=== PATIENT | female | born 1940 | race Caucasian/White ===

== ENCOUNTER 2016-08-12 23:20 | Emergency (ER) | payer MEDICARE, OTHER | END 2016-08-13 03:23 | disposition home or self-care (01) | DX: S80.01XA Contusion of right knee, initial encounter (principal); X58.XXXA Exposure to other specified factors, initial encounter; M25.561 Pain in right knee; Z86.718 Personal history of other venous thrombosis and embolism; Z79.01 Long term (current) use of anticoagulants ==

== ENCOUNTER 2017-12-08 09:38 | Emergency (ER) | payer MEDICARE, OTHER ==
[2017-12-08] MEDS ORDERED: DEXAMETHASONE 10 MG/ML VIAL PO STA (11:14)
--- NOTE | 2017-12-08 11:16 | ED Physician Documentation ---
History of Present Illness - Stated complaint Stated Complaint: BODY PX - Chief complaint Chief Complaint: General - History obtained from History obtained from: Patient - History of Present Illness Timing: How many weeks ago (3) - Treatment prior to arrival Treatment prior to arrival: Tramadol. - Additonal information Additional information: The patient is a 77-year-old female with history of fibromyalgia, who presents with generalized myalgias, involving especially her neck and shoulders, as well as arms and legs. Her symptoms started about 3 weeks ago, and this morning she decided she just "couldn't take it anymore." It hurts to turn her head. She describes a generalized headache. She denies fever, sore throat, cough or shortness of breath, nausea, vomiting, or dysuria. She denies any recent traumatic injury. She has been under "unbelievable stress" and has identified stress as an aggravating factor in her fibromyalgia. She was seen by her nurse practitioner 5 days ago and was prescribed tramadol, which she states has not helped. Review of Systems Constitutional: reports: Myalgias. denies: Fever Eyes: denies: Decreased vision Ears: denies: Tinnitus/ringing Nose: denies: Congestion Throat: denies: Sore throat Cardiac: denies: Chest pain / pressure Respiratory: denies: Dyspnea, Cough GI: denies: Abdominal Pain, Nausea, Vomiting : denies: Dysuria Skin: denies: Rash Musculoskeletal: reports: Neck pain, Extremity pain. denies: Extremity swelling Neurologic: reports: Headache. 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 : None HEENT: None Psych: None Musculoskeletal: Fibromyalgia Derm: None - Past Surgical History Past Surgical History: No - Present Medications Home Medications: Ambulatory Orders Medication Instructions Recorded Confirmed Atenolol 1 mg PO DAILY 12/29/15 12/29/15 Azo` 95 mg PO DAILY 12/29/15 12/29/15 Vit D` 2,000 mg PO DAILY 12/29/15 12/29/15 Warfarin [Coumadin] 1 mg PO DAILY 12/29/15 12/29/15 Warfarin [Coumadin] 7.5 mg PO DAILY 12/29/15 12/29/15 Methocarbamol [Robaxin-750] 750 mg PO TID PRN #20 tablet 12/08/17 - Allergies Allergies/Adverse Reactions: Allergies Allergy/AdvReac Type Severity Reaction Status Date / Time codeine AdvReac Anaphylaxis Verified 12/29/15 05:08 Sulfa (Sulfonamide AdvReac Rash Verified 12/29/15 05:07 Antibiotics) - Social History Does the pt smoke?: No Smoking Status: Never smoker Does the pt drink ETOH?: No Does the pt have substance abuse?: No - Immunizations Immunizations are current?: Yes - POLST Patient has POLST: No PD ED PE NORMAL - Vitals Vital signs reviewed: Yes (Mild hypertension.) - General General: Alert and oriented X 3, Well developed/nourished, Other (Overweight) - HEENT HEENT: Atraumatic, EOMI, Pharynx benign - Neck Neck: Supple, no meningeal sign, No bony TTP, No adenopathy, No JVD, Other ( Paracervical muscular tenderness bilaterally. No bony tenderness to palpation.) - Cardiac Cardiac: RRR - Respiratory Respiratory: No respiratory distress, Clear bilaterally - Abdomen Abdomen: Soft, Non tender - Back Back: No CVA TTP - Derm Derm: No rash - Extremities Extremities: No edema, No calf tenderness / cord - Neuro Neuro: Alert and oriented X 3, No motor deficit, No sensory deficit Results - Vitals Vitals: Oxygen O2 Source Room air PD MEDICAL DECISION MAKING - ED course Complexity details: re-evaluated patient, considered differential, d/w patient, d/w family ED course: The patient's presentation is most consistent with exacerbation of fibromyalgia. There is significant muscle tension involving paracervical musculature. Her examination does not suggest meningitis or other infectious etiology. There is no evidence to suggest acute traumatic etiology. Treatment in the emergency department included administration of dexamethasone 10 mg orally. She is being discharged with prescription for Robaxin. I discussed with her treating with short course of prednisone, but she declined. I advised that narcotic medication would not be clinically advisable. I discussed with her and her symptomatic treatment, outpatient follow-up, as well as potentially worrisome signs or symptoms that should prompt reevaluation in the emergency department. - Sepsis Event Vital Signs: Oxygen O2 Source Room air Departure - Departure Disposition: 01 Home, Self Care Clinical Impression: Myalgia Condition: Stable Instructions: ED Muscle Aching Follow-Up: Joanne Garsia MD [Primary Care Provider] - Prescriptions: Methocarbamol [Robaxin-750] 750 mg PO TID PRN #20 tablet PRN Reason: Spasms Comments: Take Robaxin 3 times daily as prescribed to help decrease muscle spasms. Continue using Tylenol for its anti-inflammatory effect. Follow up with your primary physician within 1-2 weeks. Call to schedule appointment. Return to the emergency department if you develop increasing pain, or otherwise worsening symptoms. Discharge Date/Time: 12/08/17 11:29
[2017-12-08 11:31] VITALS: BP 149/86
[2017-12-08] MEDS ORDERED: CHERRY SYRUP 10 ML UDC PO ONE (11:31)
== END 2017-12-08 11:29 | disposition home or self-care (01) ==
LOC: ED 09:38
DX: I10 Essential (primary) hypertension (principal); I48.91 Unspecified atrial fibrillation; M79.7 Fibromyalgia; Z79.01 Long term (current) use of anticoagulants
CPT/HCPCS: 99283; A9270

== ENCOUNTER 2018-04-04 17:54 | Outpatient (CLI) | payer MEDICARE, OTHER | END 2018-04-04 17:55 | disposition critical access hospital (66) | LOC: EMS 17:54 | PROVIDERS: ATTEND Surgery | DX: S09.93XA Unspecified injury of face, initial encounter (principal); M25.551 Pain in right hip; M25.561 Pain in right knee; W01.0XXA Fall on same level from slipping, tripping and stumbling without subsequent striking against object, initial encounter; Y93.01 Activity, walking, marching and hiking; Y92.213 High school as the place of occurrence of the external cause | CPT/HCPCS: A0425; A0429 ==

== ENCOUNTER 2018-04-04 18:26 | Emergency (ER) | payer MEDICARE, OTHER ==
--- NOTE | 2018-04-04 18:45 | ED Physician Documentation ---
PD HPI HEAD INJURY - Stated complaint Stated Complaint: FALL - HIP PAIN - Chief complaint Chief Complaint: Trauma Hd/Nk - History obtained from History obtained from: Patient - History of Present Illness Mechanism of head injury: Fell Where head injury occurred: Other (Parking lot) Timing - onset: How many minutes ago (30) Pain level now: 0 Location of injury: Right Quality of pain: Pain Associated symptoms: Other (Right facial swelling and bruised). No: LOC, AMS, Amnesia, Nausea / vomiting, Neck pain, Seizures, Ear drainage, Nasal drainage Symptoms improve with: Nothing Symptoms worsen with: Other (Nothing) Contributing factors: Anticoagulated (Coumadin) Similar symptoms before: Has not had sx before Recently seen: Not recently seen - Additional information Additional information: 77-year-old female with history of atrial fib and blood clot on Coumadin here with complaint of accidentally falling in a parking lot because it was dark and she did not see the bump on the ground. Patient stated she landed face forward. She denied any loss of consciousness, Headache, neck pain or back pain. She stated she landed on her right knee so she is complaining of pain in her right knee and right hip. Patient was unable to Get up andwalk so EMS was called.Patient denied any symptoms prior to the fall. Review of Systems Ten Systems: 10 systems reviewed and negative Constitutional: denies: Fever Eyes: denies: Loss of vision, Decreased vision Nose: denies: Rhinorrhea / runny nose Throat: denies: Dental pain / toothache Cardiac: denies: Chest pain / pressure Respiratory: denies: Dyspnea GI: denies: Abdominal Pain, Nausea, Vomiting Musculoskeletal: reports: Extremity pain. denies: Neck pain, Back pain Neurologic: reports: Head injury. 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 : None HEENT: None Psych: None Musculoskeletal: Fibromyalgia Derm: None - Past Surgical History Past Surgical History: No - Present Medications Home Medications: Ambulatory Orders Medication Instructions Recorded Confirmed Azo` 95 mg PO DAILY 12/29/15 12/29/15 RX: Atenolol 1 mg PO DAILY 12/29/15 12/29/15 Vit D` 2,000 mg PO DAILY 12/29/15 12/29/15 Warfarin [Coumadin] 1 mg PO DAILY 12/29/15 12/29/15 Warfarin [Coumadin] 7.5 mg PO DAILY 12/29/15 12/29/15 Methocarbamol [Robaxin-750] 750 mg PO TID PRN #20 tablet 12/08/17 - Allergies Allergies/Adverse Reactions: Allergies Allergy/AdvReac Type Severity Reaction Status Date / Time codeine AdvReac Anaphylaxis Verified 12/29/15 05:08 Sulfa (Sulfonamide AdvReac Rash Verified 12/29/15 05:07 Antibiotics) - Social History Does the pt smoke?: No Smoking Status: Never smoker Does the pt drink ETOH?: No Does the pt have substance abuse?: No - Immunizations Immunizations are current?: Yes - POLST Patient has POLST: No PD ED PE NORMAL - Vitals Vital signs reviewed: Yes - General General: Alert and oriented X 3, No acute distress, Well developed/nourished - HEENT HEENT: PERRL, EOMI, Moist mucous membranes, Pharynx benign, Dentition benign, Other (Right cheek with mild swelling and purplish hematoma. Patient able to open mouth without difficulty.) - Neck Neck: Supple, no meningeal sign, No bony TTP - Cardiac Cardiac: No murmur, Other (Irregularly irregular) - Respiratory Respiratory: No respiratory distress, Clear bilaterally - Abdomen Abdomen: Normal bowel sounds, Soft, Non tender, Non distended - Back Back: No CVA TTP, No spinal TTP - Derm Derm: Normal color, Warm and dry - Extremities Extremities: No deformity, No edema, Other (Right knee with mild swelling and tender to palpation.Mild tenderness to palpation of the right hip but no leg shortening no abduction.) - Neuro Neuro: Alert and oriented X 3, clinical dietetic technician 2-12 intact, No motor deficit, No sensory deficit, Normal speech - Psych Psych: Normal mood, Normal affect Results - Vitals Vitals: Vital Signs - 24 hr 04/04/18 04/04/18 04/04/18 18:26 19:47 20:30 Temperature 37.1 C Heart Rate 76 73 70 Respiratory 18 16 Rate Blood Pressure 161/95 H 138/91 H 142/79 H O2 Saturation 96 96 96 04/04/18 21:41 Temperature Heart Rate 68 Respiratory Rate Blood Pressure 141/79 H O2 Saturation 96 Oxygen O2 Source Room air - Labs Labs: Laboratory Tests 04/04/18 04/04/18 04/04/18 18:35 18:35 18:35 WBC 6.7 RBC 4.43 Hgb 14.9 Hct 44.5 MCV 100.4 H MCH 33.7 H MCHC 33.5 RDW 16.2 H Plt Count 213 MPV 8.2 Neut # (Auto) 4.8 Lymph # (Auto) 1.1 L Evans # (Auto) 0.6 Eos # (Auto) 0.1 Baso # (Auto) 0.1 Absolute Nucleated RBC 0.01 Nucleated RBC % 0.1 PT 21.1 H INR 1.9 H Sodium 139 Potassium 4.5 Chloride 103 Carbon Dioxide 29 Anion Gap 7.0 BUN 31 H Creatinine 0.9 Estimated GFR (MDRD) 61 L Glucose 113 H Calcium 9.7 Total Bilirubin 0.7 AST 25 ALT 20 Alkaline Phosphatase 55 Total Protein 7.7 Albumin 4.2 Globulin 3.5 Albumin/Globulin Ratio 1.2 Lipase 35 PD MEDICAL DECISION MAKING - ED course Complexity details: re-evaluated patient (2049 Patient inform of test results. Patient does not want any pain medication for her right knee discomfort. She wants an ointment for abrasion on her right cheek. States her tetanus shot is up-to-date.), considered differential (Intracranial bleed or subdural hemorrhage, facial bone fracture versus contusions., Right knee fracture versus contusion, right hip contusion versus fracture or dislocation.), d/w patient, d/w family (2129 Spouse at the bedside updated on test results. Patient sitting at the bedside and calling for her right home.) Departure - Departure Disposition: 01 Home, Self Care Clinical Impression: Hematoma Contusion Qualifiers: Encounter type: initial encounter Contusion area: head Facial hematoma Qualifiers: Encounter type: initial encounter Qualified Code(s): S00.83XA - Contusion of other part of head, initial encounter Contusion of knee, right Qualifiers: Encounter type: initial encounter Qualified Code(s): S80.01XA - Contusion of right knee, initial encounter Condition: Stable Instructions: ED Hematoma, ED Wound Care Comments: After your fall expect to be sore tomorrow so you may take your Tylenol for pain. Apply ice pack on your right cheek to decrease the swelling. You may apply [id number] on this area until it is healed. Also apply ice pack on your right knee and elevate the right leg. If worse return to the emergency room. Otherwise follow-up with your primary doctor this week. Discharge Date/Time: 04/04/18 22:00
[2018-04-04 18:47] LABS: BASOPHILS # (AUTO) 0.1 10^3/uL (0.0-0.1); BASOPHILS % (AUTO) 1.1 %; EOSINOPHILS # (AUTO) 0.1 10^3/uL (0.0-0.7); EOSINOPHILS % (AUTO) 1.1 %; HGB - HEMOGLOBIN 14.9 g/dL (12.0-16.0); LYMPHOCYTES # (AUTO) 1.1 10^3/uL (1.5-3.5); LYMPHOCYTES % (AUTO) 16.1 %; MEAN CORPUSCULAR HEMOGLOBIN 33.7 pg (27.0-31.0); MEAN CORPUSCULAR HGB CONC 33.5 g/dL (32.0-36.0); MEAN CORPUSCULAR VOLUME 100.4 fL (81.0-99.0); MEAN PLATELET VOLUME 8.2 fL (7.9-10.8); MONOCYTES # (AUTO) 0.6 10^3/uL (0.0-1.0); MONOCYTES % (AUTO) 9.3 %; NEUTROPHILS # (AUTO) 4.8 10^3/uL (1.5-6.6); NEUTROPHILS % (AUTO) 72.4 %; PLT - PLATELET COUNT 213 10^3/uL (130-450); RED BLOOD COUNT 4.43 10^6/uL (4.20-5.40); RED CELL DISTRIBUTION WIDTH 16.2 % (12.0-15.0); WHITE BLOOD COUNT 6.7 x10^3/uL (4.8-10.8)
[2018-04-04 18:53] LABS: INR 1.9 (0.8-1.2); PT - PROTHROMBIN TIME 21.1 secs (9.9-12.6)
[2018-04-04 19:07] LABS: ALBUMIN 4.2 g/dL (3.2-5.5); ALBUMIN/GLOBULIN RATIO 1.2 (1.0-2.2); BILIRUBIN,TOTAL 0.7 mg/dL (0.2-1.0); CALCIUM 9.7 mg/dL (8.5-10.3); CREATININE 0.9 mg/dL (0.4-1.0); TOTAL PROTEIN 7.7 g/dL (6.7-8.2)
--- NOTE | 2018-04-04 19:34 | CT Report ---
Reason: fall on coumadin Procedure Date: 04/04/2018 Accession Number: [id number] / [id number] Procedure: CT - Head W/O CPT Code: FULL RESULT: EXAM: CT HEAD EXAM DATE: 04/04/2018 07:07 PM. CLINICAL HISTORY: Fall. COMPARISON: None. TECHNIQUE: Multiaxial CT images were obtained from the foramen magnum to the vertex. Reformats: Sagittal and coronal. IV contrast: None. In accordance with CT protocol optimization, one or more of the following dose reduction techniques were utilized for this exam: automated exposure control, adjustment of mA and/or KV based on patient size, or use of iterative reconstructive technique. FINDINGS: Parenchyma: No intraparenchymal hemorrhage. No evidence of mass, midline shift, or CT findings of infarction. Faith-white differentiation is distinct. Extraaxial Spaces: Normal for age. No subdural or epidural collections identified. Ventricles: Normal in size and position. Sinuses and Orbits: Imaged paranasal sinuses, orbits, and mastoids show no significant abnormality. Bones: No evidence of fracture or calvarial defect. Other: None. IMPRESSION: No acute intracranial CT abnormality. RAD[facility]
--- NOTE | 2018-04-04 19:55 | XRAY Report ---
Reason: fall pain Procedure Date: 04/04/2018 Accession Number: [id number] / [id number] Procedure: XR - Knee 3 View RT CPT Code: FULL RESULT: EXAM: RIGHT KNEE RADIOGRAPHY EXAM DATE: 04/04/2018 07:23 PM. CLINICAL HISTORY: Right knee pain after ground-level fall today COMPARISON: None. TECHNIQUE: 3 views. FINDINGS: Bones: Normal. No fractures or bone lesions. Joints: Mild meniscal chondrocalcinosis. Mild patellofemoral compartment osteoarthritis. Small knee effusion. Mild vascular calcifications. Soft Tissues: Unremarkable IMPRESSION: 1. No fracture. 2. Mild right patellofemoral compartment osteoarthritis. 3. Small right knee effusion. 4. Mild meniscal chondrocalcinosis, nonspecific, but which may be seen in settings such as senescent change or calcium pyrophosphate deposition disease. RAD[facility]
--- NOTE | 2018-04-04 19:57 | CT Report ---
Reason: fall, hematoma of right side of face Procedure Date: 04/04/2018 Accession Number: [id number] / [id number] Procedure: CT - Facial Bones W/O CPT Code: FULL RESULT: EXAM: CT MAXILLOFACIAL WITHOUT CONTRAST EXAM DATE: 04/04/2018 07:07 PM. CLINICAL HISTORY: Fall, hematoma of right side of face. COMPARISONS: None. TECHNIQUE: Thin-section axial images were acquired of the face without contrast. Post-processing: Coronal and sagittal reformats. Other: None. In accordance with CT protocol optimization, one or more of the following dose reduction techniques were utilized for this exam: automated exposure control, adjustment of mA and/or KV based on patient size, or use of iterative reconstructive technique. FINDINGS: Soft Tissue: Right infraorbital and periorbital fat stranding without focal collection. Orbits: No intraorbital hematoma. Status post right lens surgery. Bones: There is some lobulation of the mandible anteriorly. This is a bit more prominent on the right although this is probably physiologic for this patient. Doubt an acute fracture at this level. Temporomandibular Joints: The temporomandibular joints are symmetric and normally located. Sinuses: Mild mucosal thickening ethmoid and maxillary sinuses. Other: Atherosclerosis. 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 IMPRESSION: 1. Right infraorbital and periorbital subcutaneous hematoma without evidence of facial fracture. RADIA
--- NOTE | 2018-04-04 20:02 | XRAY Report ---
Reason: fall pain Procedure Date: 04/04/2018 Accession Number: [id number] / [id number] Procedure: XR - Hip w/Pelvis 2-3V RT CPT Code: FULL RESULT: EXAM: RIGHT HIP AND PELVIS RADIOGRAPHY EXAM DATE: 04/04/2018 07:23 PM. HISTORY: Right hip pain after ground-level fall COMPARISONS: None. TECHNIQUE: 1 view of the pelvis and 1 view of the hip. FINDINGS: Bones: No fracture. Bone island in the left inferior pubic ramus. 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 Soft Tissues: Unremarkable IMPRESSION: No fracture. [facility]IA
[2018-04-04] MEDS ORDERED: BACITRACIN OINT TOP STA (21:41)
[2018-04-04 21:42] VITALS: BP 141/79
== END 2018-04-04 22:00 | disposition home or self-care (01) ==
LOC: EDUNIT# → ED 18:26
DX: S00.83XA Contusion of other part of head, initial encounter (principal); S70.01XA Contusion of right hip, initial encounter; S80.01XA Contusion of right knee, initial encounter; S00.81XA Abrasion of other part of head, initial encounter; W18.09XA Striking against other object with subsequent fall, initial encounter; Y92.481 Parking lot as the place of occurrence of the external cause; M79.7 Fibromyalgia; I10 Essential (primary) hypertension; I48.91 Unspecified atrial fibrillation; Z79.01 Long term (current) use of anticoagulants; M16.0 Bilateral primary osteoarthritis of hip; M47.898 Other spondylosis, sacral and sacrococcygeal region
CPT/HCPCS: 36415; 70450; 70486; 73502; 73562; 80053; 83690; 85025; 85610; 99283; 99284; A9270

== ENCOUNTER 2018-09-19 22:08 | Outpatient (CLI) | payer MEDICARE, OTHER | END 2018-09-19 22:09 | disposition short-term general hospital (02) | LOC: EMS 22:08 | PROVIDERS: ATTEND Surgery | DX: R07.9 Chest pain, unspecified (principal) | CPT/HCPCS: A0425; A0427 ==

== ENCOUNTER 2018-12-23 04:51 | Outpatient (CLI) | payer MEDICARE, OTHER | END 2018-12-23 04:52 | disposition short-term general hospital (02) | LOC: EMS 04:51 | PROVIDERS: ATTEND Surgery | DX: R07.9 Chest pain, unspecified (principal) | CPT/HCPCS: A0425; A0427 ==

== ENCOUNTER 2019-05-06 11:45 | Emergency (ER) | payer MEDICARE, OTHER ==
[2019-05-06 11:57] VITALS: BP 145/98
[2019-05-06 12:29] LABS: BASOPHILS % (AUTO) 0.6 %; EOSINOPHILS # (AUTO) 0.2 10^3/uL (0.0-0.7); EOSINOPHILS % (AUTO) 3.1 %; HGB - HEMOGLOBIN 13.6 g/dL (12.0-16.0); LYMPHOCYTES # (AUTO) 1.1 10^3/uL (1.5-3.5); LYMPHOCYTES % (AUTO) 23.9 %; MEAN CORPUSCULAR HEMOGLOBIN 29.7 pg (27.0-31.0); MEAN CORPUSCULAR HGB CONC 31.1 g/dL (32.0-36.0); MEAN CORPUSCULAR VOLUME 95.6 fL (81.0-99.0); MEAN PLATELET VOLUME 9.9 fL (7.9-10.8); MONOCYTES # (AUTO) 0.5 10^3/uL (0.0-1.0); MONOCYTES % (AUTO) 10.7 %; NEUTROPHILS # (AUTO) 2.9 10^3/uL (1.5-6.6); NEUTROPHILS % (AUTO) 61.5 %; PLT - PLATELET COUNT 224 10^3/uL (130-450); RED BLOOD COUNT 4.58 10^6/uL (4.20-5.40); RED CELL DISTRIBUTION WIDTH 14.4 % (12.0-15.0); WHITE BLOOD COUNT 4.8 x10^3/uL (4.8-10.8)
[2019-05-06 12:55] LABS: ALBUMIN 4.3 g/dL (3.2-5.5); ALBUMIN/GLOBULIN RATIO 1.1 (1.0-2.2); CALCIUM 10.1 mg/dL (8.5-10.3); TOTAL PROTEIN 8.3 g/dL (6.7-8.2)
--- NOTE | 2019-05-06 13:00 | XRAY Report ---
Reason: chest pain, dizzy Procedure Date: 05/06/2019 Accession Number: [id number] / [id number] Procedure: XR - Chest 1 View X-Ray CPT Code: 09406 Final Report FULL RESULT: EXAM: CHEST RADIOGRAPHY EXAM DATE: 05/06/2019 12:05 PM. CLINICAL HISTORY: Chest pain, dizzy. COMPARISON: CHEST 1 VIEW 12/29/2015 5:57 AM XR CHEST PA AND LAT 12/02/2007 3:02 AM. TECHNIQUE: 1 view. FINDINGS: Lungs/Pleura: Scarring left midlung. No consolidation. No vascular congestion. No pneumothorax. Mediastinum: Cardiomegaly. Aortic atherosclerosis. Mild aortic tortuosity. Other: Degenerative changes of both shoulders. IMPRESSION: 1. Cardiomegaly. 2. No acute disease. [facility]IA
== END 2019-05-06 13:30 | disposition left against medical advice (07) ==
LOC: ED 11:45
DX: Z53.21 Procedure and treatment not carried out due to patient leaving prior to being seen by health care provider (principal)
CPT/HCPCS: 36415; 71045; 80053; 83690; 84484; 85025; 93005

== ENCOUNTER 2021-07-22 08:00 | Outpatient (CLI) | payer MEDICARE, OTHER ==
--- NOTE | 2021-07-22 15:13 | XRAY Report ---
PROCEDURE: Ankle 3 View LT INDICATIONS: LEFT ANKLE PAIN TECHNIQUE: 3 views of the ankle were acquired. COMPARISON: None FINDINGS: Bones: No fractures or dislocations. Ankle mortise is normally aligned. No suspicious bony lesions . Soft tissues: Medial ankle soft tissue swelling is seen. No tibiotalar joint effusion. Achilles ten don appears normal. IMPRESSION: Medial ankle soft tissue swelling. No acute ankle fracture or dislocation. Ankle mortise is congruent. Reviewed by: Reynaldo Cordova MD on 07/22/2021 3:11 PM [facility] Approved by: Reynaldo Cordova MD on 07/22/2021 3:11 PM [facility] Station ID: [id number]
== END 2021-07-22 23:59 | disposition home or self-care (01) ==
LOC: DI.S 08:00
PROVIDERS: ATTEND Physician Assistant Medical
DX: M25.572 Pain in left ankle and joints of left foot (principal); R93.6 Abnormal findings on diagnostic imaging of limbs; R93.89 Abnormal findings on diagnostic imaging of other specified body structures; Z79.01 Long term (current) use of anticoagulants
CPT/HCPCS: 36416; 85610

== ENCOUNTER 2021-10-31 11:25 | Outpatient (CLI) | payer MEDICARE, OTHER | END 2021-10-31 11:26 | disposition home or self-care (01) | LOC: LAB.S 11:25 | PROVIDERS: ATTEND Internal Medicine Gastroenterology | DX: I82.5Z9 Chronic embolism and thrombosis of unspecified deep veins of unspecified distal lower extremity (principal); Z79.01 Long term (current) use of anticoagulants | CPT/HCPCS: 36416; 85610 ==

== ENCOUNTER 2022-01-24 14:35 | Outpatient (CLI) | payer MEDICARE, OTHER | END 2022-01-24 14:36 | disposition home or self-care (01) | LOC: LAB.S 14:35 | PROVIDERS: ATTEND Pharmacist | DX: Z79.01 Long term (current) use of anticoagulants (principal); I82.5Z9 Chronic embolism and thrombosis of unspecified deep veins of unspecified distal lower extremity | CPT/HCPCS: 36416; 85610 ==

== ENCOUNTER 2022-04-20 03:30 | Emergency (ER) | payer MEDICARE, OTHER ==
[2022-04-20] MEDS ORDERED: ONDANSETRON 4 MG/2 ML VIAL IVP STA (03:51)
[2022-04-20] MEDS ORDERED: SODIUM CHLORIDE 0.9% 1,000 ML IV STA (03:51)
[2022-04-20] MEDS ORDERED: MORPHINE 2 MG/ML CARPUJECT IVP STA ×2 (04:00→08:02)
[2022-04-20 04:07] LABS: BASOPHILS % (AUTO) 0.4 %; EOSINOPHILS # (AUTO) 0.1 10^3/uL (0.0-0.7); EOSINOPHILS % (AUTO) 0.7 %; HCT - HEMATOCRIT 44.3 % (37.0-47.0); HGB - HEMOGLOBIN 14.2 g/dL (12.0-16.0); LYMPHOCYTES # (AUTO) 1.1 10^3/uL (1.5-3.5); LYMPHOCYTES % (AUTO) 12.9 %; MEAN CORPUSCULAR HEMOGLOBIN 30.3 pg (27.0-31.0); MEAN CORPUSCULAR HGB CONC 32.1 g/dL (32.0-36.0); MEAN CORPUSCULAR VOLUME 94.5 fL (81.0-99.0); MEAN PLATELET VOLUME 9.8 fL (7.9-10.8); MONOCYTES # (AUTO) 0.6 10^3/uL (0.0-1.0); MONOCYTES % (AUTO) 7.7 %; NEUTROPHILS # (AUTO) 6.4 10^3/uL (1.5-6.6); NEUTROPHILS % (AUTO) 78.2 %; PLT - PLATELET COUNT 200 10^3/uL (130-450); RED BLOOD COUNT 4.69 10^6/uL (4.20-5.40); RED CELL DISTRIBUTION WIDTH 14.6 % (12.0-15.0); WHITE BLOOD COUNT 8.2 x10^3/uL (4.8-10.8)
[2022-04-20 04:20] LABS: ALBUMIN 4.1 g/dL (3.2-5.5); BILIRUBIN,TOTAL 1.1 mg/dL (0.2-1.0); CALCIUM 10.3 mg/dL (8.5-10.3); CREATININE 0.9 mg/dL (0.4-1.0); POTASSIUM 4.6 mmol/L (3.5-5.0); TOTAL PROTEIN 8.3 g/dL (6.7-8.2)
[2022-04-20] MEDS ORDERED: iohexoL-300 100 ML VIAL ONE (04:37)
[2022-04-20 04:40] LABS: INR 1.5 (0.8-1.2); PT - PROTHROMBIN TIME 16.1 secs (9.9-12.6)
[2022-04-20] MEDS ORDERED: iohexoL-300 100 ML VIAL IVP ONE (05:12)
--- NOTE | 2022-04-20 05:36 | ED Physician Documentation ---
PD HPI ABD PAIN - Stated complaint Stated Complaint: ABD PX - Chief complaint Chief Complaint: Abd Pain - History obtained from History obtained from: Patient - Additional information Additional information: Patient is a 81-year-old female with a history of atrial fibrillation on Coumadin presenting for evaluation of lower abdominal pain that started around 8 PM. She is unable to describe it other than pain. She reports nausea but no vomiting. Denies diarrhea. Her last bowel movement was 2 days ago. She reports struggling with constipation over the past 6 months And so she does not have a bowel movement every day.She denies eating anything that would have upset her stomach. She denies a history of abdominal surgeries or previous bowel obstructions.Pain does not go anywhere else. She denies dysuria. No chest pain, fever, difficulty breathing. Review of Systems Constitutional: denies: Fever Nose: denies: Congestion Cardiac: denies: Chest pain / pressure Respiratory: denies: Dyspnea GI: reports: Abdominal Pain, Nausea. denies: Vomiting, Diarrhea : denies: Dysuria Musculoskeletal: denies: Back pain Neurologic: denies: Headache PD PAST MEDICAL HISTORY - Past Medical History Past Medical History: Yes Cardiovascular: Hypertension, High cholesterol, Atrial fibrillation Respiratory: None Endocrine/Autoimmune: None GI: None ROVER TENDER: None : None HEENT: None Psych: None Musculoskeletal: Fibromyalgia Derm: None - Past Surgical History Past Surgical History: Yes General: Colonoscopy Cardiovascular: Coronary stent - Present Medications Home Medications: Ambulatory Orders Medication Instructions Recorded Confirmed Amox/Clav 875/125 [Augmentin] 1 each PO Q12H #20 tablet 04/20/22 Atenolol [Tenormin] 100 mg PO DAILY PM 04/20/22 04/20/22 Atorvastatin Calcium 40 mg PO DAILY 04/20/22 04/20/22 Isosorbide Mononitrate [Isosorbide 30 mg PO DAILY 04/20/22 04/20/22 Mononitrate ER] Morphine Ir [Ms Ir] 1 tab PO Q6H PRN #10 tablet 04/20/22 Potassium Chloride 1 cap PO DAILY 04/20/22 04/20/22 Warfarin [Coumadin] 5 mg PO DAILY 04/20/22 04/20/22 - Allergies Allergies/Adverse Reactions: Allergies Allergy/AdvReac Type Severity Reaction Status Date / Time codeine AdvReac Anaphylaxis Verified 04/20/22 03:49 Sulfa (Sulfonamide AdvReac Rash Verified 04/20/22 03:49 Antibiotics) - Social History Does the pt smoke?: No Smoking Status: Never smoker Does the pt drink ETOH?: No Does the pt have substance abuse?: No - Immunizations Immunizations are current?: Yes - POLST Patient has POLST: No PD ED PE NORMAL - General General: Alert and oriented X 3, No acute distress, Well developed/nourished - HEENT HEENT: Atraumatic - Neck Neck: Supple, no meningeal sign - Cardiac Cardiac: Other (Normal rate, irregularly irregular) - Respiratory Respiratory: No respiratory distress, Clear bilaterally - Abdomen Abdomen: Normal bowel sounds, Soft, Non distended, Other (Mild suprapubic tenderness to palpation, no rebound, no guarding, no pulsatile mass or hernias) - Back Back: No CVA TTP - Derm Derm: Warm and dry - Extremities Extremities: No edema - Neuro Neuro: Normal speech Results - Vitals Vitals: Vital Signs - 24 hr 04/20/22 04/20/22 04/20/22 03:30 04:06 04:28 Temperature 36.8 C Heart Rate 72 82 81 Respiratory 16 16 16 Rate Blood Pressure 139/88 H 157/74 H 157/74 H O2 Saturation 99 98 97 04/20/22 04/20/22 04/20/22 05:53 06:48 09:15 Temperature Heart Rate 59 L 65 66 Respiratory 16 16 16 Rate Blood Pressure 138/65 H 141/71 H 120/55 L O2 Saturation 97 100 94 Oxygen O2 Source Room air - Labs Labs: Laboratory Tests 04/20/22 04/20/22 04/20/22 04:00 04:00 04:24 WBC 8.2 RBC 4.69 Hgb 14.2 Hct 44.3 MCV 94.5 MCH 30.3 MCHC 32.1 RDW 14.6 Plt Count 200 MPV 9.8 Neut # (Auto) 6.4 Lymph # (Auto) 1.1 L [place] # (Auto) 0.6 Eos # (Auto) 0.1 Baso # (Auto) 0.0 Absolute Nucleated RBC 0.00 Nucleated RBC % 0.0 PT 16.1 H INR 1.5 H Sodium 138 Potassium 4.6 Chloride 102 Carbon Dioxide 25 Anion Gap 11.0 BUN 29 H Creatinine 0.9 Estimated GFR (MDRD) 60 L Glucose 125 H Calcium 10.3 Total Bilirubin 1.1 H AST 28 ALT 16 Alkaline Phosphatase 72 Total Protein 8.3 H Albumin 4.1 Globulin 4.2 Albumin/Globulin Ratio 1.0 Lipase 33 Urine Color Urine Clarity Urine pH Ur Specific [place] Urine Protein Urine Glucose (UA) Urine Ketones Urine Occult Blood Urine Nitrite Urine Bilirubin Urine Urobilinogen Ur Leukocyte Esterase Urine RBC Urine WBC Ur Squamous Epith Cells Urine Bacteria Ur Microscopic Review Urine Culture Comments 04/20/22 06:20 WBC RBC Hgb Hct MCV MCH MCHC RDW Plt Count MPV Neut # (Auto) Lymph # (Auto) [place] # (Auto) Eos # (Auto) Baso # (Auto) Absolute Nucleated RBC Nucleated RBC % PT INR Sodium Potassium Chloride Carbon Dioxide Anion Gap BUN Creatinine Estimated GFR (MDRD) Glucose Calcium Total Bilirubin AST ALT Alkaline Phosphatase Total Protein Albumin Globulin Albumin/Globulin Ratio Lipase Urine Color YELLOW Urine Clarity HAZY Urine pH 6.0 Ur Specific [place] 1.020 Urine Protein NEGATIVE Urine Glucose (UA) NEGATIVE Urine Ketones NEGATIVE Urine Occult Blood NEGATIVE Urine Nitrite POSITIVE H Urine Bilirubin NEGATIVE Urine Urobilinogen 0.2 (NORMAL) Ur Leukocyte Esterase NEGATIVE Urine RBC 0-5 Urine WBC 0-3 Ur Squamous Epith Cells RARE Squamous Urine Bacteria Many H Ur Microscopic Review INDICATED Urine Culture Comments INDICATED PD MEDICAL DECISION MAKING - ED course Complexity details: reviewed results, re-evaluated patient ED course: Pt presenting with lower abdominal pain. VSS. Mild tenderness to lower abdomen. Labs reviewed. UA concerning for infection. CT pending at shift change and care turned over to Dr. Prieto. Pt denies upper abdominal pain has no RUQ pain, no CP, no SOB. She has been ambulating without difficulty in the ER. Departure - Departure Disposition: 01 Home, Self Care Clinical Impression: Colitis, Adnexal mass Condition: Good Instructions: ED Gastroenteritis Bacterial Prescriptions: Amox/Clav 875/125 [Augmentin] 1 each PO Q12H #20 tablet Morphine Ir [Ms Ir] 1 tab PO Q6H PRN #10 tablet PRN Reason: Pain Comments: You were seen today for acute abdominal pain, your labs were fairly unremarkable including a normal CBC, subtherapeutic INR at 1.5, chemistry panels were basically normal with the exception of mildly elevated BUN at 29 which is not necessarily new for you, and you did have a urinalysis positive for nitrite and bacteria. Here he received 4 mg of morphine with help and 1 g of ceftriaxone and antibiotic. A CT scan was done showing segmental colonic wall thickening consistent with a colitis, incidental gallstones, and a 2.4 cm cystic structure likely associated with the right ovary. That last finding does require follow-up with your primary care physician and consideration for pelvic ultrasound and/or referral to gynecology For the colitis I am prescribing an antibiotic and your prescriptions were sent electronically to [facility] in [place]. You should also follow-up with your primary care physician for this for consideration for referral to Gastroenterology And consideration for colonoscopy Often times when you start antibiotics while you are taking anticoagulants such as Coumadin or warfarin, your INR will go up. You need to have your INR checked frequently while on the antibiotics. Have it checked in 3 days, again in 6 days, and at least weekly while you are on antibiotics. Dose adjustments of your anticoagulants may be necessary. I am prescribing a short course of narcotic pain medication for you. These are potentially dangerous and addictive medications that should be used carefully. These medications may constipate you. Take an jopq-vzf-ddwpysf stool softener (docusate) twice daily with plenty of water while taking these medications. If you go 24 hours without a bowel movement, take megs-ffy-abdpjhz miralax, per package instructions. Do not drink or drive while taking these medications. If you received narcotic or sedating medications while in the emergency department, do not drive for 24 hours. Store this medication in a safe, secure place and out of reach of children. It is a violation of federal law to give or sell this medication to another person or to use in a manner other than prescribed. The ED will not refill narcotic prescriptions, including prescriptions lost or stolen. To dispose of unwanted medications: 1. [facility] at [address] in [place] has a medication drop box. They accept prescription medications (in pill form) Thursday through Thursday 9:00 a.m. to 5:00 p.m. 2. The [facility] [employer] accepts prescription medications (in pill form only) for disposal year round. Call for more information. 3. Contact the [facility] for the next [employer] sponsored prescription drug collection event. , x7310, or x7310; Note that many narcotic pain relievers also contain Tylenol/acetaminophen. Please ensure that your total dose of acetaminophen from all sources does not exceed 3 g (3000 mg) per day. We will culture your urine, the results should be done in 48-72 hours. If an antibiotic change is necessary we will call you. Return if worse in the meantime, especially if you develop increasing flank pain, fevers, or cannot keep down the medication. Discharge Date/Time: 04/20/22 10:26
[2022-04-20 06:44] LABS: BILIRUBIN,URINE NEGATIVE (NEGATIVE); GLUCOSE, URINE (UA) NEGATIVE (NEGATIVE); KETONES,URINE (UA) NEGATIVE (NEGATIVE); LEUKOCYTE ESTERASE, URINE NEGATIVE (NEGATIVE); NITRITE,URINE POSITIVE (NEGATIVE); OCCULT BLOOD,URINE NEGATIVE (NEGATIVE); PROTEIN,URINE NEGATIVE (NEGATIVE); UROBILINOGEN,URINE 0.2 (NORMAL) E.U./dL (NORMAL)
[2022-04-20 06:48] LABS: CLARITY,URINE HAZY (CLEAR)
[2022-04-20 06:51] LABS: BACTERIA,URINE Many /HPF (None Seen); RBC,URINE 0-5 /HPF (0-5); SQUAMOUS EPITHELIAL CELL,UR RARE Squamous (<= Few); WBC,URINE 0-3 /HPF (0-5)
[2022-04-20] MEDS ORDERED: cefTRIAXone 1 GM in SODIUM CHLORIDE 0.9% MINIBAG 100 ML IV STA (06:52)
[2022-04-20] MEDS ORDERED: cefTRIAXone 1 GM VIAL ONE (06:57)
--- NOTE | 2022-04-20 08:08 | ED Physician Documentation ---
ED Addendum - Addendum Addendum: 04/20/22 08:07 Patient seen and examined at bedside after signout from Dr. Pinzon and completion of CT imaging. She was much better for a time after morphine but pain is now recurred but she appears well and comfortable at the bedside. Results discussed with patient including the primary diagnosis of likely colitis which we will treat with antibiotics, but also the cholelithiasis and the adnexal mass needing follow-up and she and voiced understanding of this. Disposition: Discharged home Condition: Stable Diagnosis: 1. Colitis 2. Right adnexal mass Prescriptions: 1. Morphine sulfate immediately released tablets, 1 tablet every 6 hours p.o. as needed pain #10 no refills 2. Augmentin 875/125 1 tab p.o. twice daily #20
--- NOTE | 2022-04-20 09:05 | CT Report ---
PROCEDURE: ABDOMEN/PELVIS W INDICATIONS: lower abd pain CONTRAST: 100 ML OMNI 300 TECHNIQUE: After the administration of IV contrast, 5 mm thick sections acquired from the diaphragms to the symp hysis. 5 mm thick coronal and sagittal reformats were acquired. For radiation dose reduction, the f ollowing was used: automated exposure control, adjustment of mA and/or kV according to patient size. COMPARISON: None. FINDINGS: Image quality: Excellent. ABDOMEN: Lung bases: Lung bases are clear. Heart size is moderately enlarged. Moderate coronary artery calc ification is seen. Solid organs: Liver is mildly enlarged. Potential subcentimeter liver cysts are present, yet not well seen. The spleen demonstrates normal size and demonstrates no suspicious lesions. Gallbladder demon strates layering gallstones Biliary system is non dilated. Pancreas enhances normally. No adrenal nodules. Kidneys demonstrate normal size and enhancement, without hydronephrosis. Peritoneum and bowel: Moderate nodular bowel wall thickening can be seen, particularly involving the transverse colon. The descending colon and the sigmoid colon are also involved. No free fluid or air. No dilated loops of small bowel are seen. Nodes and vessels: No retroperitoneal or mesenteric adenopathy by size criteria. Aorta and inferior vena cava are normal in size. Miscellaneous: No ventral hernias. PELVIS: Genitourinary: Bladder wall thickness is normal. The uterus demonstrates an unremarkable appearance for age. There is a 2.4 cm right adnexal cyst, as on series 3 image 54. Miscellaneous: No inguinal hernias or adenopathy. Bones: No suspicious bony lesions. No vertebral body compression fractures. Focal L5-S1 degenerati ve change is seen. Age-appropriate degenerative changes are seen elsewhere. Scattered apparent bone islands can be seen. IMPRESSION: Generalized colonic wall thickening can be seen, particularly involving the transverse c olon. Please correlate with potential infectious and inflammatory causes of colitis. No findings of p erforation or abscess can be seen. Right adnexal cyst seen. Please consider a follow-up pelvic ultrasound for further evaluation. Additional findings: Moderate cardiomegaly Moderate coronary artery calcification Mildly enlarged liver Layering gallstones Focal L5-S1 degenerative change Scattered apparent bone islands Note: No significant discrepancy from the preliminary report. Reviewed by: Clarence Moore MD on 04/20/2022 8:04 AM [facility] Approved by: Clarence Moore MD on 04/20/2022 8:04 AM [facility] Station ID: [id number]
[2022-04-20 09:15] VITALS: BP 120/55
== END 2022-04-20 10:26 | disposition home or self-care (01) ==
LOC: EDUNIT# → ED 03:30
DX: K52.9 Noninfective gastroenteritis and colitis, unspecified (principal); R19.09 Other intra-abdominal and pelvic swelling, mass and lump; R79.1 Abnormal coagulation profile; Z79.01 Long term (current) use of anticoagulants
CPT/HCPCS: 36415; 74177; 80053; 81001; 83690; 85025; 85610; 87086; 87181; 96365; 96375; 96376; 99283; 99284; Q9967; 81003

== ENCOUNTER → 2022-04-20 | Outpatient (CLI) | payer MEDICARE, OTHER | END | disposition critical access hospital (66) | LOC: EMS 02:46 | DX: R10.9 Unspecified abdominal pain (principal); R51.9 Headache, unspecified; R11.0 Nausea | CPT/HCPCS: A0425; A0429 ==

== ENCOUNTER 2022-04-28 11:26 | Outpatient (CLI) | payer MEDICARE, OTHER | END 2022-04-28 11:27 | disposition home or self-care (01) | LOC: LAB.S 11:26 | PROVIDERS: ATTEND Pharmacist | DX: Z79.01 Long term (current) use of anticoagulants (principal); I82.5Z9 Chronic embolism and thrombosis of unspecified deep veins of unspecified distal lower extremity | CPT/HCPCS: 36416; 85610 ==

== ENCOUNTER 2022-09-23 12:19 | Outpatient (CLI) | payer MEDICARE, OTHER ==
[2022-09-23 15:04] LABS: BILIRUBIN,URINE NEGATIVE (NEGATIVE); GLUCOSE, URINE (UA) NEGATIVE (NEGATIVE); KETONES,URINE (UA) NEGATIVE (NEGATIVE); LEUKOCYTE ESTERASE, URINE SMALL (NEGATIVE); NITRITE,URINE POSITIVE (NEGATIVE); OCCULT BLOOD,URINE TRACE-INTA (NEGATIVE); PH,URINE 5.5 PH (5.0-7.5); PROTEIN,URINE NEGATIVE (NEGATIVE); UROBILINOGEN,URINE 0.2 (NORMAL) E.U./dL (NORMAL)
[2022-09-23 15:33] LABS: CLARITY,URINE CLOUDY (CLEAR)
[2022-09-23 15:34] LABS: BACTERIA,URINE Many /HPF (None Seen); SQUAMOUS EPITHELIAL CELL,UR RARE Squamous (<= Few)
== END 2022-09-23 12:20 | disposition home or self-care (01) ==
LOC: LAB.S 12:19
PROVIDERS: ATTEND Student in an Organized Health Care Education/Training Program
DX: R39.9 Unspecified symptoms and signs involving the genitourinary system (principal)
CPT/HCPCS: 81001; 87077; 87086; 87181

== ENCOUNTER 2023-03-03 14:01 | Outpatient (CLI) | payer MEDICARE, OTHER | END 2023-03-03 14:02 | disposition home or self-care (01) | LOC: LAB.S 14:01 | PROVIDERS: ATTEND Pharmacist | DX: Z79.01 Long term (current) use of anticoagulants (principal); I82.5Z9 Chronic embolism and thrombosis of unspecified deep veins of unspecified distal lower extremity | CPT/HCPCS: 36416; 85610 ==

== ENCOUNTER 2023-05-06 14:04 | Outpatient (CLI) | payer MEDICARE, OTHER | END 2023-05-06 14:05 | disposition home or self-care (01) | LOC: LAB.S 14:04 | PROVIDERS: ATTEND Pharmacist | DX: I82.5Z9 Chronic embolism and thrombosis of unspecified deep veins of unspecified distal lower extremity (principal); Z79.01 Long term (current) use of anticoagulants | CPT/HCPCS: 36416; 85610 ==

== ENCOUNTER 2023-05-15 10:12 | Emergency (ER) | payer MEDICARE, OTHER ==
[2023-05-15 10:35] VITALS: O2SAT 99
--- NOTE | 2023-05-15 10:45 | ED Physician Documentation ---
PD HPI SKIN - Stated complaint Stated Complaint: LT FT SWELLING/PX - Chief complaint Chief Complaint: General - History obtained from History obtained from: Patient - History of Present Illness Timing - onset: Today Timing - duration: Hours Timing - details: Abrupt onset, Still present Location: LLE (pain dorsum of foot, very tender with some warmth. No skin lesions nor bruising. Has pain to calf area as well though. Was walking while shopping a lot yesterday and was doing some lifting and standing. Did not have pain at the time though. No history of gout nor rheumatoid.) Quality / character: Painful, Swelling. No: Discolored, Draining Associated symptoms: No: Fever, Myalgias Contributing factors: No: Exposed to medication, Exposed to food, Recent illness Similar symptoms before: Has not had sx before Recently seen: Not recently seen Review of Systems Constitutional: denies: Fever, Chills Skin: denies: Abrasion (s), Laceration (s) Neurologic: denies: Focal weakness, Numbness PD PAST MEDICAL HISTORY - Past Medical History Cardiovascular: Hypertension, High cholesterol, Atrial fibrillation Respiratory: None Endocrine/Autoimmune: None GI: None CLINICAL REHABILITATION LIAISON: None : None HEENT: None Psych: None Musculoskeletal: Fibromyalgia Derm: None - Past Surgical History Past Surgical History: Yes General: Colonoscopy Cardiovascular: Coronary stent - Present Medications Home Medications: Ambulatory Orders Medication Instructions Recorded Confirmed Atenolol [Tenormin] 100 mg PO DAILY PM 04/20/22 04/20/22 Atorvastatin Calcium 40 mg PO DAILY 04/20/22 04/20/22 Isosorbide Mononitrate [Isosorbide 30 mg PO DAILY 04/20/22 04/20/22 Mononitrate ER] Morphine Ir [Ms Ir] 1 tab PO Q6H PRN #10 tablet 04/20/22 Potassium Chloride 1 cap PO DAILY 04/20/22 04/20/22 Warfarin [Coumadin] 5 mg PO DAILY 04/20/22 04/20/22 Colchicine 0.6 mg PO BID #10 tablet 05/15/23 HYDROcod/ACETAM 5/325 [[place] 5/325] 1 ea PO Q6H PRN #10 tablet 05/15/23 dexAMETHasone [Decadron] 4 mg PO DAILY #5 tablet 05/15/23 - Allergies Allergies/Adverse Reactions: Allergies Allergy/AdvReac Type Severity Reaction Status Date / Time codeine AdvReac Anaphylaxis Verified 05/15/23 10:31 Sulfa (Sulfonamide AdvReac Rash Verified 05/15/23 10:31 Antibiotics) - Social History Does the pt smoke?: No Smoking Status: Never smoker Does the pt drink ETOH?: No Does the pt have substance abuse?: No - Immunizations Immunizations are current?: Yes - POLST Patient has POLST: No PD ED PE NORMAL - Vitals Vital signs reviewed: Yes - General General: Alert and oriented X 3, No acute distress, Well developed/nourished - Derm Derm: Normal color, Warm and dry - Extremities Extremities: Other (left foot with marked tenderness anterolateral with some warmth, i=minimal redness. No skin sores. Some tender in lower calf area without swelling. No vesicles nor rash noted. ) - Neuro Neuro: Alert and oriented X 3, No motor deficit, No sensory deficit, Normal speech Results - Vitals Vitals: Vital Signs - 24 hr 05/15/23 05/15/23 10:26 13:09 Temperature 37.0 C 36.8 C Heart Rate 65 62 Respiratory 16 16 Rate Blood Pressure 142/74 H 138/72 H O2 Saturation 99 99 Oxygen O2 Source Room air - Labs Labs: Laboratory Tests 05/15/23 11:28 INR (Fingerstick) 2.5 H - Rads (name of study) duplex US left leg Relevant Findings:: Prelim report reviewed (from [facility], no DVT seen) PD Medical Decision Making - ED course Complexity details: reviewed results (US no DVT. ), considered differential (pain dorsum foot in particular. Some of calf. Does not fit dermatomal distribution per se. I think calf is muscular as no DVT seen. The foot can be arthritic from excess walking yest. Also consider gout as a prime location for that. Less likely early shingles. Has good pulse and cap refill, not vasc), d/w patient Departure - Departure Disposition: 01 Home, Self Care Clinical Impression: Acute foot pain, Arthritis of foot, Strain of left calf muscle, Anticoagulant long-term use Condition: Stable Record reviewed to determine appropriate education?: Yes Instructions: ED Sprain Foot Follow-Up: DAVID BAUER MD [Primary Care Provider] - Prescriptions: Colchicine 0.6 mg PO BID #10 tablet dexAMETHasone [Decadron] 4 mg PO DAILY #5 tablet HYDROcod/ACETAM 5/325 [[place] 5/325] 1 ea PO Q6H PRN #10 tablet PRN Reason: Pain Comments: The ultrasound of your leg does not show any blood clots. Your Coumadin level is therapeutic at 2.5 today. The degree of tenderness and pain on the foot is suggestive of arthritis flareup or tendinitis. It also is suggestive of potential gout arthritis. At this point we can treated with anti-inflammatories of Decadron steroid and colchicine anti-inflammatory. Since you are on a blood thinner, do not use NSAIDs such as ibuprofen or naproxen. For pain add Tylenol 500 to 650 mg 4 times daily regularly. You can add hydrocodone/acetaminophen if needed for worse pain. This would be intended short-term on all the medicines for just 3 to 5 days until fully improved. I sent your prescriptions to [facility] in [place]. Activity as tolerated but try to minimize any degree of walking etc. I know you do have to care for your . Recheck if not improving well over the next several days and resolved by 3 to 5 days. Return if worse or follow-up with your primary care. I am prescribing a short course of narcotic pain medication for you. These are potentially dangerous and addictive medications that should be used carefully. These medications may constipate you. Take an oyme-mew-gumvojt stool softener such as docusate twice daily with plenty of water while taking these medications . If you go 24 hours without a bowel movement, take svyk-nlz-bruzfvv MiraLAX, per package instructions. Do not drink or drive while taking these medications. If you received narcotic or sedating medications while in the emergency department do not drive for 24 hours. Store this medication in a safe, secure place and out of reach of children. It is a violation of federal law to give or sell this medication to another person or to use in a manner other than prescribed. The ED will not refill narcotic prescriptions, including prescriptions lost or stolen. You can dispose of unwanted medications at the [facility]'s office or at several pharmacies such as [facility]. Forms: PCP List Discharge Date/Time: 05/15/23 13:00
[2023-05-15] MEDS ORDERED: ACETAMINOPHEN 325 MG TABLET PO STA (11:23)
[2023-05-15] MEDS ORDERED: dexAMETHasone 4 MG TABLET PO STA (11:23)
[2023-05-15] MEDS ORDERED: HYDROcod/ACETAM 5/325 MG TABLET PO STA (11:23)
--- NOTE | 2023-05-15 12:45 | Ultrasound Report ---
PROCEDURE: Duplex Ext Veins Left INDICATIONS: left foot and calf pain for 2 days, increasing TECHNIQUE: Real-time imaging, as well as color and pulse Doppler interrogation, were performed of the lower extr emity deep veins from the inguinal ligament to the popliteal fossa. Attempted visualization of the ca lf veins was performed. COMPARISON: None. FINDINGS: The deep veins are normally compressible, and free of intraluminal thrombus. Color and pu lse Doppler demonstrate normal phasic intraluminal flow. There is normal augmentation response to di stal compression maneuver. Of note, the calf veins were not evaluated. IMPRESSION: No deep venous thrombosis of the visualized left lower extremity. Of note, the popliteal vein and cindi f veins were not evaluated. Recommend repeat ultrasound of these areas if there is swelling. Reviewed by: Diego Avilez MD on 05/15/2023 12:44 PM PST Approved by: Diego Avilez MD on 05/15/2023 12:44 PM PST Station ID: [id number]
[2023-05-15 13:10] VITALS: BP 138/72
== END 2023-05-15 13:00 | disposition home or self-care (01) ==
LOC: ED 10:12
DX: M19.072 Primary osteoarthritis, left ankle and foot (principal); S86.912A Strain of unspecified muscle(s) and tendon(s) at lower leg level, left leg, initial encounter; X50.9XXA Other and unspecified overexertion or strenuous movements or postures, initial encounter; Y93.89 Activity, other specified
CPT/HCPCS: 85610; 93971; 99283; 99284; A9270; J8540

== ENCOUNTER 2023-07-10 11:22 | Outpatient (CLI) | payer MEDICARE, OTHER | END 2023-07-10 11:23 | disposition home or self-care (01) | LOC: LAB.S 11:22 | PROVIDERS: ATTEND Pharmacist | DX: I82.5Z9 Chronic embolism and thrombosis of unspecified deep veins of unspecified distal lower extremity (principal); Z79.01 Long term (current) use of anticoagulants | CPT/HCPCS: 36416; 85610 ==

== ENCOUNTER 2023-07-14 13:17 | Outpatient (CLI) | payer MEDICARE, OTHER | END 2023-07-14 13:18 | disposition home or self-care (01) | LOC: LAB.S 13:17 | PROVIDERS: ATTEND Registered Nurse | DX: N12 Tubulo-interstitial nephritis, not specified as acute or chronic (principal) | CPT/HCPCS: 87086; 87181 ==

== ENCOUNTER 2023-07-21 12:30 | Outpatient (CLI) | payer MEDICARE, OTHER | END 2023-07-21 12:31 | disposition home or self-care (01) | LOC: LAB.S 12:30 | PROVIDERS: ATTEND Physician Assistant Medical | DX: N30.90 Cystitis, unspecified without hematuria (principal); Z86.19 Personal history of other infectious and parasitic diseases | CPT/HCPCS: 87086 ==

== ENCOUNTER 2023-07-28 07:00 | Outpatient (CLI) | payer MEDICARE, OTHER ==
[2023-07-28 15:48] LABS: BILIRUBIN,URINE NEGATIVE (NEGATIVE); GLUCOSE, URINE (UA) NEGATIVE (NEGATIVE); KETONES,URINE (UA) NEGATIVE (NEGATIVE); LEUKOCYTE ESTERASE, URINE NEGATIVE (NEGATIVE); NITRITE,URINE NEGATIVE (NEGATIVE); OCCULT BLOOD,URINE NEGATIVE (NEGATIVE); PH,URINE 5.5 PH (5.0-7.5); PROTEIN,URINE NEGATIVE (NEGATIVE); UROBILINOGEN,URINE 0.2 (NORMAL) E.U./dL (NORMAL)
[2023-07-28 16:16] LABS: CLARITY,URINE CLEAR (CLEAR)
[2023-07-28 16:17] LABS: BACTERIA,URINE None Seen /HPF (None Seen); RBC,URINE 0-5 /HPF (0-5); SQUAMOUS EPITHELIAL CELL,UR NONE SEEN (<= Few); WBC,URINE 0-3 /HPF (0-5)
== END 2023-07-28 23:59 | disposition home or self-care (01) ==
LOC: LAB.S 07:00
PROVIDERS: ATTEND Emergency Medicine
DX: N30.90 Cystitis, unspecified without hematuria (principal)
CPT/HCPCS: 81001; 87086

== ENCOUNTER 2023-08-13 12:35 | Outpatient (CLI) | payer MEDICARE, OTHER | END 2023-08-13 12:36 | disposition home or self-care (01) | LOC: LAB.S 12:35 | PROVIDERS: ATTEND Pharmacist | DX: I82.5Z9 Chronic embolism and thrombosis of unspecified deep veins of unspecified distal lower extremity (principal); Z79.01 Long term (current) use of anticoagulants | CPT/HCPCS: 36416; 85610 ==

== ENCOUNTER 2023-08-21 08:42 | Outpatient (CLI) | payer MEDICARE, OTHER ==
[2023-08-21 14:36] LABS: BILIRUBIN,URINE NEGATIVE (NEGATIVE); GLUCOSE, URINE (UA) NEGATIVE (NEGATIVE); KETONES,URINE (UA) NEGATIVE (NEGATIVE); LEUKOCYTE ESTERASE, URINE MODERATE (NEGATIVE); NITRITE,URINE NEGATIVE (NEGATIVE); OCCULT BLOOD,URINE TRACE-INTA (NEGATIVE); PH,URINE 5.5 PH (5.0-7.5); PROTEIN,URINE NEGATIVE (NEGATIVE); UROBILINOGEN,URINE 0.2 (NORMAL) E.U./dL (NORMAL)
[2023-08-21 14:43] LABS: CLARITY,URINE HAZY (CLEAR)
[2023-08-21 15:13] LABS: BACTERIA,URINE Moderate /HPF (None Seen); RBC,URINE 0-5 /HPF (0-5); SQUAMOUS EPITHELIAL CELL,UR RARE Squamous (<= Few); WBC,URINE >25 /HPF (0-5)
== END 2023-08-21 08:43 | disposition home or self-care (01) ==
LOC: LAB.S 08:42
PROVIDERS: ATTEND Student in an Organized Health Care Education/Training Program
DX: R30.0 Dysuria (principal)
CPT/HCPCS: 81001; 87086; 87181

== ENCOUNTER 2023-10-01 11:39 | Outpatient (CLI) | payer MEDICARE, OTHER | END 2023-10-01 11:40 | disposition home or self-care (01) | LOC: LAB.S 11:39 | PROVIDERS: ATTEND Pharmacist | DX: I82.5Z9 Chronic embolism and thrombosis of unspecified deep veins of unspecified distal lower extremity (principal); Z79.01 Long term (current) use of anticoagulants | CPT/HCPCS: 36416; 85610 ==

== ENCOUNTER 2023-11-05 09:45 | Outpatient (CLI) | payer MEDICARE, OTHER | END 2023-11-05 09:46 | disposition home or self-care (01) | LOC: LAB.S 09:45 | PROVIDERS: ATTEND Pharmacist | DX: I82.5Z9 Chronic embolism and thrombosis of unspecified deep veins of unspecified distal lower extremity (principal); Z79.01 Long term (current) use of anticoagulants | CPT/HCPCS: 36416; 85610 ==

== ENCOUNTER 2023-11-25 09:38 | Outpatient (CLI) | payer MEDICARE, OTHER | END 2023-11-25 09:39 | disposition home or self-care (01) | LOC: LAB.S 09:38 | PROVIDERS: ATTEND Pharmacist | DX: I82.5Z9 Chronic embolism and thrombosis of unspecified deep veins of unspecified distal lower extremity (principal); Z79.01 Long term (current) use of anticoagulants | CPT/HCPCS: 36416; 85610 ==

== ENCOUNTER 2023-12-18 07:49 | Outpatient (CLI) | payer MEDICARE, OTHER | END 2023-12-18 07:50 | disposition home or self-care (01) | LOC: LAB.S 07:49 | PROVIDERS: ATTEND Pharmacist | DX: I82.5Z9 Chronic embolism and thrombosis of unspecified deep veins of unspecified distal lower extremity (principal); Z79.01 Long term (current) use of anticoagulants | CPT/HCPCS: 36416; 85610 ==

== ENCOUNTER 2024-01-11 10:18 | Outpatient (CLI) | payer MEDICARE, OTHER | END 2024-01-11 10:19 | disposition home or self-care (01) | LOC: LAB.S 10:18 | PROVIDERS: ATTEND Pharmacist | DX: I82.5Z9 Chronic embolism and thrombosis of unspecified deep veins of unspecified distal lower extremity (principal); Z79.01 Long term (current) use of anticoagulants | CPT/HCPCS: 36416; 85610 ==

== ENCOUNTER 2024-01-25 11:40 | Emergency (ER) | payer MEDICARE, OTHER ==
--- NOTE | 2024-01-25 12:47 | ED Physician Documentation ---
History of Present Illness - Stated complaint Stated Complaint: GLF,LT LEG PX - Chief complaint Chief Complaint: Trauma Ext - Additonal information Additional information: Patient is an 83-year-old female presenting to the emergency department on warfarin for history of recurrent DVTs patient reports with left leg pain and severe pain with ambulating. Patient notes she fell at home when walking down a step and her foot caught and she landed on her knee. She denies hitting her head or losing consciousness but she is on warfarin. Patient had difficulty getting up but was able to get into the car with a friend's help. Patient last INR was around 3 about a week ago. She denies any other pain she denies falling on her back no neck pain. PD PAST MEDICAL HISTORY - Past Medical History Cardiovascular: Hypertension, High cholesterol, Atrial fibrillation Respiratory: None Endocrine/Autoimmune: None GI: None PROFESSOR OF THEOLOGY: None : None HEENT: None Psych: None Musculoskeletal: Fibromyalgia Derm: None - Past Surgical History Past Surgical History: Yes General: Colonoscopy Cardiovascular: Coronary stent - Present Medications Home Medications: Ambulatory Orders Medication Instructions Recorded Confirmed Atorvastatin Calcium 40 mg PO DAILY 04/20/22 04/20/22 Isosorbide Mononitrate [Isosorbide 30 mg PO DAILY 04/20/22 04/20/22 Mononitrate ER] Morphine Ir [Ms Ir] 1 tab PO Q6H PRN #10 tablet 04/20/22 Potassium Chloride 1 cap PO DAILY 04/20/22 04/20/22 Warfarin [Coumadin] 5 mg PO DAILY 04/20/22 04/20/22 atenoloL [Tenormin] 100 mg PO DAILY PM 04/20/22 04/20/22 Colchicine 0.6 mg PO BID #10 tablet 05/15/23 HYDROcod/ACETAM 5/325 [[place] 5/325] 1 ea PO Q6H PRN #10 tablet 05/15/23 dexAMETHasone [Decadron] 4 mg PO DAILY #5 tablet 05/15/23 traMADol [Ultram] 50 mg PO ONCE #6 tablet 01/25/24 - Allergies Allergies/Adverse Reactions: Allergies Allergy/AdvReac Type Severity Reaction Status Date / Time codeine AdvReac Anaphylaxis Verified 05/15/23 10:31 Sulfa (Sulfonamide AdvReac Rash Verified 05/15/23 10:31 Antibiotics) - Social History Does the pt smoke?: No Smoking Status: Never smoker Does the pt drink ETOH?: No Does the pt have substance abuse?: No - Immunizations Immunizations are current?: Yes - POLST Patient has POLST: No PD ED PE NORMAL - Vitals Vital signs reviewed: Yes - General General: Alert and oriented X 3 - HEENT HEENT: Atraumatic - Neck Neck: Supple, no meningeal sign, Other (No C-spine tenderness. Full range of motion intact.) - Cardiac Cardiac: RRR, No murmur, No gallop, No rub - Respiratory Respiratory: No respiratory distress, Clear bilaterally - Abdomen Abdomen: Normal bowel sounds - Female Female : Deferred - Rectal Rectal: Deferred - Back Back: No spinal TTP - Derm Derm: Other (No significant erythema warmth or bruising noted to extremities.) - Extremities Extremities: Other (Significant swelling to left knee on examination with significant pain to light touch. Mild swelling appreciated without any bruising on exam. Full range of motion of left ankle intact. Patient unable to bear weight on left leg on examination. No reproducible hip tenderness.) - Neuro Neuro: Alert and oriented X 3 Eye Opening: Spontaneous Motor: Obeys Commands Verbal: Oriented GCS Score: 15 - Psych Psych: Normal mood, Normal affect Results - Vitals Vitals: Vital Signs - 24 hr 01/25/24 01/25/24 01/25/24 11:51 13:16 14:00 Temperature 37.0 C Heart Rate 63 62 62 Respiratory 18 15 20 Rate Blood Pressure 139/84 H 141/82 H 141/82 H O2 Saturation 97 99 91 L 01/25/24 01/25/24 01/25/24 14:30 15:00 15:30 Temperature Heart Rate 72 68 66 Respiratory 18 18 18 Rate Blood Pressure 158/87 H 130/82 H 134/82 H O2 Saturation 94 98 100 Oxygen O2 Source Room air - Labs Labs: Laboratory Tests 01/25/24 01/25/24 01/25/24 12:53 12:53 12:53 WBC 6.2 RBC 4.35 Hgb 13.3 Hct 41.9 MCV 96.3 MCH 30.6 MCHC 31.7 L RDW 14.4 Plt Count 147 MPV 10.5 Neut # (Auto) 3.9 Lymph # (Auto) 1.3 L [place] # (Auto) 0.8 Eos # (Auto) 0.2 Baso # (Auto) 0.0 Absolute Nucleated RBC 0.00 Nucleated RBC % 0.0 PT 50.4 H INR 5.2 H* Sodium 137 Potassium 4.3 Chloride 105 Carbon Dioxide 25 Anion Gap 7.0 BUN 19 Creatinine 0.8 Estimated GFR (MDRD) 69 L Glucose 98 Calcium 10.3 Total Bilirubin 1.1 H AST 23 ALT 16 Alkaline Phosphatase 73 Total Protein 7.5 Albumin 4.4 Globulin 3.1 Albumin/Globulin Ratio 1.4 PD Medical Decision Making - ED course Complexity details: reviewed old records, reviewed results ED course: Patient is an 83-year-old female presenting to the emergency department with left leg pain. Patient had a ground-level fall when tripping over some stairs but did not hit her head. Patient is on warfarin. Last INR was 3.2 over a week ago. Labs were obtained here and modified trauma was called. Patient sent for CT of head C-spine was cleared with Nexus criteria and x-ray obtained of left knee due to persistent pain and unable to bear weight. INR returned at 5.2. Patient has no signs of bleeding on CT scan of the head. Left knee does show moderate joint effusion no signs of fracture or dislocation. They are recommending CT scan if patient is unable to bear weight for possible occult fracture. Patient able to ambulate here with walker and assistance. Patient given knee immobilizer hereI was able to ambulate with immobilizer. Low suspicion but for occult fracture however offered patient CT she is agreeable with holding off for this in the outpatient setting.. Patient does have elevated INR here at 5.2. Discussed with patient we will hold warfarin tonight. Her hemoglobin is stable. Recheck with INR clinic tomorrow. Patient instructed to keep leg elevated ice and wear Alfredo wrap to prevent any significant bruising or bleeding. Patient will follow-up with orthopedics in the outpatient setting. Patient instructed to return with any worsening pain swelling numbness or tingling. Patient also instructed to Take tramadol for pain medication at home however if she feels tired or has adverse nausea symptoms to stop taking this medication. Patient given instructions on follow-up with orthopedics. Departure - Departure Disposition: 01 Home, Self Care Clinical Impression: Contusion, Elevated INR, Fall at home, Left knee sprain, Effusion, left knee Condition: Good Instructions: ED Effusion Knee Prescriptions: traMADol [Ultram] 50 mg PO ONCE #6 tablet Comments: I have given you follow-up with orthopedics in the outpatient setting for your left knee. Do not take warfarin tonight as you have elevated INR readings. Return to the emergency department with any other abnormal blue bruising head pains worsening left leg pain discoloration or any other new or worsening symptoms. Have sent short course of pain medication to your pharmacy please take as prescribed. I am prescribing a short course of narcotic pain medication for you. These are potentially dangerous and addictive medications that should be used carefully. These medications may constipate you. Take an rxif-ryw-fcfrrzi stool softener (docusate) twice daily with plenty of water while taking these medications. If you go 24 hours without a bowel movement, take eakl-gpw-deoftws miralax, per package instructions. Do not drink or drive while taking these medications. If you received narcotic or sedating medications while in the emergency department, do not drive for 24 hours. Store this medication in a safe, secure place and out of reach of children. It is a violation of federal law to give or sell this medication to another person or to use in a manner other than prescribed. The ED will not refill narcotic prescriptions, including prescriptions lost or stolen. To dispose of unwanted medications: 1. [facility] provides a drop box for medication in pill form only (no liquids) 8:00 am to 4:30 p.m. Thursday-Thursday in the lobby of the [facility], [address] [place] [address]. Empty pills into ziplock bag before disposal. Call [phone] for information. 2.[employer], [employer] is a free service available to all [facility] residents. Go to [email or web address] Note that many narcotic pain relievers also contain Tylenol/acetaminophen. Please ensure that your total dose of acetaminophen from all sources does not exceed 3 g (3000 mg) per day. Forms: PCP List
--- NOTE | 2024-01-25 12:56 | XRAY Report ---
PROCEDURE: Knee 4+V LT INDICATIONS: left knee pain and swelling TECHNIQUE: 4 views of the knee(s) were acquired. COMPARISON: None. FINDINGS: Bones: No fractures or dislocations. Chondrocalcinosis. Tricompartment osteophytes. No suspicious b khadijah lesions. Soft tissues: Small knee joint effusion. No suspicious soft tissue calcifications or masses. IMPRESSION: No acute bony abnormality. CPPD arthropathy. Knee joint effusion. If there remains a high clinical co ncern for fracture, including inability to bear weight, consider cross-sectional imaging to exclude a n occult fracture. Reviewed by: Omar Arzola MD on 01/25/2024 12:54 PM PDT Approved by: Omar Arzola MD on 01/25/2024 12:54 PM PDT Station ID: [id number]
[2024-01-25 12:59] LABS: BASOPHILS % (AUTO) 0.6 %; EOSINOPHILS # (AUTO) 0.2 10^3/uL (0.0-0.7); EOSINOPHILS % (AUTO) 2.8 %; HCT - HEMATOCRIT 41.9 % (37.0-47.0); HGB - HEMOGLOBIN 13.3 g/dL (12.0-16.0); LYMPHOCYTES # (AUTO) 1.3 10^3/uL (1.5-3.5); MEAN CORPUSCULAR HEMOGLOBIN 30.6 pg (27.0-31.0); MEAN CORPUSCULAR HGB CONC 31.7 g/dL (32.0-36.0); MEAN CORPUSCULAR VOLUME 96.3 fL (81.0-99.0); MEAN PLATELET VOLUME 10.5 fL (7.9-10.8); MONOCYTES # (AUTO) 0.8 10^3/uL (0.0-1.0); MONOCYTES % (AUTO) 12.3 %; NEUTROPHILS # (AUTO) 3.9 10^3/uL (1.5-6.6); NEUTROPHILS % (AUTO) 63.1 %; PLT - PLATELET COUNT 147 10^3/uL (130-450); RED BLOOD COUNT 4.35 10^6/uL (4.20-5.40); RED CELL DISTRIBUTION WIDTH 14.4 % (12.0-15.0); WHITE BLOOD COUNT 6.2 x10^3/uL (4.8-10.8)
[2024-01-25 13:13] LABS: ALBUMIN 4.4 g/dL (3.2-5.5); ALBUMIN/GLOBULIN RATIO 1.4 (1.0-2.2); BILIRUBIN,TOTAL 1.1 mg/dL (0.2-1.0); CALCIUM 10.3 mg/dL (8.5-10.3); CREATININE 0.8 mg/dL (0.6-1.3); POTASSIUM 4.3 mmol/L (3.5-4.5); TOTAL PROTEIN 7.5 g/dL (6.4-8.9)
[2024-01-25 13:16] LABS: PT - PROTHROMBIN TIME 50.4 secs (9.9-12.6)
[2024-01-25 13:19] LABS: INR 5.2 (0.8-1.2)
--- NOTE | 2024-01-25 13:58 | CT Report ---
PROCEDURE: Head WO INDICATIONS: on warfarin fall TECHNIQUE: Noncontrast 4.5 mm thick angled axial sections acquired from the foramen magnum to the vertex. For r adiation dose reduction, the following was used: automated exposure control, adjustment of mA and/or kV according to patient size. COMPARISON: 04/04/2018. FINDINGS: Image quality: Excellent. CSF spaces: Basal cisterns are patent. No extra-axial fluid collections. Ventricles are normal in size and shape. Brain: No midline shift. No intracranial masses or hemorrhage. Faith-white matter interface is norm al. Skull and face: Calvarium and visualized facial bones are intact, without suspicious lesions. Sinuses: Visualized sinuses and mastoids are clear. IMPRESSION: No acute intracranial pathology. Reviewed by: Omar Arzola MD on 01/25/2024 1:57 PM PDT Approved by: Omar Arzola MD on 01/25/2024 1:57 PM PDT Station ID: [id number]
[2024-01-25 15:55] VITALS: O2SAT 100
[2024-01-25 16:53] VITALS: BP 126/82
== END 2024-01-25 15:31 | disposition home or self-care (01) ==
LOC: ED 11:40
DX: S80.02XA Contusion of left knee, initial encounter (principal); S83.92XA Sprain of unspecified site of left knee, initial encounter; W10.9XXA Fall (on) (from) unspecified stairs and steps, initial encounter; Y92.009 Unspecified place in unspecified non-institutional (private) residence as the place of occurrence of the external cause; R79.1 Abnormal coagulation profile; Z86.718 Personal history of other venous thrombosis and embolism; Z79.01 Long term (current) use of anticoagulants; Z91.81 History of falling
CPT/HCPCS: 36415; 80053; 85025; 85610; 99283; 99284

== ENCOUNTER 2024-01-27 14:17 | Outpatient (CLI) | payer MEDICARE, OTHER | END 2024-01-27 14:18 | disposition home or self-care (01) | LOC: LAB.S 14:17 | PROVIDERS: ATTEND Pharmacist | DX: Z79.01 Long term (current) use of anticoagulants (principal); I82.5Z9 Chronic embolism and thrombosis of unspecified deep veins of unspecified distal lower extremity | CPT/HCPCS: 85610 ==

== ENCOUNTER 2024-02-08 11:39 | Outpatient (CLI) | payer MEDICARE, OTHER | END 2024-02-08 11:40 | disposition home or self-care (01) | LOC: LAB.S 11:39 | PROVIDERS: ATTEND Pharmacist | DX: I82.5Z9 Chronic embolism and thrombosis of unspecified deep veins of unspecified distal lower extremity (principal); Z79.01 Long term (current) use of anticoagulants | CPT/HCPCS: 36416; 85610 ==